=== PATIENT | male | born 1990 | race African-American/Black ===

== ENCOUNTER 2023-11-19 12:21 | Emergency (ER) | payer OTHER ==
[~2023-11-19] VITALS: Ht 182.9 cm; Wt 94.3 kg
[~2023-11-19 12:21] MED LIST: ALBU6.7H6 IH; KEP500 PO; OMEP20EC4 PO
--- NOTE | 2023-11-19 12:30 | NUR ---
PRESENTED TO ED AMBULATORY WITH CC OF CHRONIC LOW BACK PAIN NOT [place] IF SUSTAINED FROM [employer] OR WHEN HE WAS HELPING HIS MOM MOVE AROUND STUFF FEW MONTHS AGO. PER PT HE HAD MULTIPLE ED AND URGENT CARE VISITS AND HIS PAIN WAS ONLY BETTER WHEN HE WAS TAKING THE STEROID. CURRENTLY LIDOCAINE PATCHES, TYLENOL AND IBUPROFEN PRESCRIBED BY HIS PCP. PT ADDED HAVING SOME TINGLING ON HIS LEGS. NO BOWEL OR BLADDER INCONTINENCE. PMHX: HTN ON LISINOPRIL 40MG DAILY. PRIOR HISTORY OF SEZIURES BUT POT REPORTED HAS BEEN CLEARED OF THAT ALREADY.
[2023-11-19 12:38] VITALS: BP 165/103; PULSE 68; RESP 19; TEMP 98.5; O2SAT 99
[2023-11-19 13:04] VITALS: BP 166/110; PULSE 83; RESP 20; TEMP 98.4; O2SAT 98
[2023-11-19] MEDS ORDERED: LID5T TP (13:11)
[2023-11-19] MEDS ORDERED: ACET-8905 PO (13:11)
[2023-11-19] MEDS ORDERED: CYCL-711 PO (13:11)
[2023-11-19] MEDS: LIDOCAINE 5% 1 EA PATCH TP ONE (13:15)
[2023-11-19] MEDS: HYDROcodone/APAP 5/325 MG 1 TAB TAB PO ONE (13:16)
[2023-11-19] MEDS: CYCLOBENZAPRINE 10 MG TAB PO ONE (13:17)
[2023-11-19] MEDS ORDERED: HYDR-5071 PO (13:32)
--- NOTE | 2023-11-19 13:43 | NUR ---
Patient discharged with v/s stable. Written and verbal after care instructions given and explained. Patient alert, oriented and verbalized understanding of instructions. Ambulatory with steady gait. All questions addressed prior to discharge. ID band removed. Patient advised to follow up with PMD. Rx SENT TO PHARMACY. Patient educated on indication of medication including possible reaction and side effects. Opportunity to ask questions provided and answered.
== END 2023-11-19 13:40 | disposition home or self-care (01) ==
LOC: MED 12:21
DX: M40.56 Lordosis, unspecified, lumbar region (principal); J45.909 Unspecified asthma, uncomplicated; K21.9 Gastro-esophageal reflux disease without esophagitis; I10 Essential (primary) hypertension; E78.5 Hyperlipidemia, unspecified; Z86.69 Personal history of other diseases of the nervous system and sense organs; Z79.899 Other long term (current) drug therapy; Z88.6 Allergy status to analgesic agent; Z88.8 Allergy status to other drugs, medicaments and biological substances
CPT/HCPCS: 99284